=== PATIENT | female | born 1955 | race Caucasian/White ===

== ENCOUNTER 2019-12-22 15:36 | Emergency (ER) | payer MEDICARE ==
--- NOTE | 2019-12-22 15:39 | ERPHSYRPT ---
- History of Present Illness Time Seen by Provider: 12/22/19 15:38 Source: patient Exam Limitations: clinical condition Physician History: This is a 64-year-old white female who has history of remote CVA, hypertension, hypothyroidism and rheumatoid arthritis and presents with weakness that began yesterday afternoon precipitating a fall. Patient states since that time she has had some weakness in her left upper extremity and numbness in both her lower extremities. She states that the weakness is worse today. Patient states she did not hit her head. Occurred: yesterday Reason for Fall: fainted (Patient felt weak) Injuries/Pain Location: no injury Loss of Consciousness: no loss of consciousness Severity of Pain-Max: none Severity of Pain-Current: none Associated Symptoms (Fall): nausea, slurred speech, other (Weakness) Allergies/Adverse Reactions: UNOBTAINABLE Allergy (Unverified 12/22/19 15:53) Home Medications: Levothyroxine Sodium [Euthyrox] 50 mcg PO DAILY 12/22/19 [History] Travel Risk - International Travel Have you traveled outside of the country in past 3 weeks: No - Coronavirus Screening Are you exhibiting any of the following symptoms?: No Close contact with a COVID-19 positive Pt in past 14-21 Days: No - Review of Systems Constitutional: Weakness Eyes: No Symptoms Ears, Nose, & Throat: No Symptoms Respiratory: No Symptoms Cardiac: No Symptoms Abdominal/Gastrointestinal: No Symptoms Genitourinary Symptoms: No Symptoms Musculoskeletal: Other (Weakness left upper extremity and bilateral lower extremities) Skin: No Symptoms Neurological: Speech Changes (Mild speech slurring), Other (Generalized weakness) Psychological: No Symptoms Endocrine: No Symptoms Hematologic/Lymphatic: No Symptoms Immunological/Allergic: No Symptoms All Other Systems: Reviewed and Negative - Past Medical History Pertinent Past Medical History: Yes Neurological History: Other Cardiac History: Hypertension Respiratory History: No Pertinent History Endocrine Medical History: Hypothyroidism Musculoskeletal History: Rheumatoid Arthritis GI Medical History: No Pertinent History History: No Pertinent History Psycho-Social History: No Pertinent History Female Reproductive Disorders: No Pertinent History Other Medical History: CVA, low thyroid, progressive systemic sclerosis - Past Surgical History Neuro Surgical History: No Pertinent History Cardiac: No Pertinent History Respiratory: No Pertinent History Gastrointestinal: No Pertinent History Genitourinary: No Pertinent History Musculoskeletal: No Pertinent History Female Surgical History: No Pertinent History - Nursing Vital Signs Nursing Vital Signs: Initial Vital Signs Temperature 98.1 F 12/22/19 15:44 Pulse Rate 88 12/22/19 15:44 Respiratory Rate 18 12/22/19 15:44 Blood Pressure 154/60 12/22/19 15:44 O2 Sat by Pulse Oximetry 92 L 12/22/19 15:44 Pain Scale Pain Intensity 2 - [place] Coma Score Best Eye Response ([place]): (4) open spontaneously Best Verbal Response ([place]): (5) oriented Best Motor Response ([place]): (6) obeys commands [place] Total: 15 - Physical Exam General Appearance: mild distress, alert, lethargy Head Injury: no evidence of injury Eye Exam: PERRL/EOMI, eyes nml inspection ENT Exam: airway nml, nml ext.inspection Neck Exam: supple, trachea midline, full range of motion, normal alignment, normal inspection, No focal neuro deficit Respiratory/Chest Exam: normal breath sounds, No chest tenderness, No respiratory distress, No decreased breath sounds Cardiovascular Exam: normal heart sounds, regular rate/rhythm, normal peripheral pulses Gastrointestinal Exam: soft, normal bowel sounds Rectal Exam: not done Back Exam: normal inspection, normal range of motion, No CVA tenderness, No vertebral tenderness Extremity Exam: normal inspection, normal range of motion, other (Patient bilateral lower extremities feel weak and numb per the patient report. However she is able to move them normally.) Neurologic Exam: alert, oriented x 3, cooperative, canvas cutter hand II-XII nml as tested, sensation nml, slurred speech (Arrival blood glucose was between 25 and 30.) Skin Exam: normal color, warm, dry SpO2 Interpretation: normal O2 Delivery: Room Air - Course Nursing assessment & vital signs reviewed: Yes EKG Interpreted by Me: RATE (80), Sinus Rhythm, NORMAL AXIS, NORMAL INTERVALS, NORMAL QRS, Other (No comparison EKG available. No obvious acute ischemic changes on the current EKG) Ordered Tests: Active Orders 24 hr Category Date Time Status Accucheck STAT Care 12/22/19 16:06 Active Seismograph Shooter STAT Care 12/22/19 16:08 Active EKG-ER Only STAT Care 12/22/19 16:06 Active IV Insertion STAT Care 12/22/19 16:06 Active NPO (ED) STAT Care 12/22/19 16:07 Active Pulse Oximetry (ED) STAT Care 12/22/19 16:06 Active House Regular Diet Diet 12/22/19 Dinner Active HEAD WITHOUT CONTRAST [CT] Stat Exams 12/22/19 16:08 Taken BLOOD CULTURE Stat Lab 12/22/19 16:51 Received CBC W DIFF Stat Lab 12/22/19 16:15 Completed CMP Stat Lab 12/22/19 16:15 Completed Glucose,Critical Care Stat Lab 12/22/19 16:03 Completed Lactic Acid Stat Lab 12/22/19 16:03 Completed PROTIME WITH INR Stat Lab 12/22/19 16:15 Completed T4 (Thyroxine) Stat Lab 12/22/19 17:05 Completed TROPONIN Q3H Lab 12/22/19 16:15 Completed TROPONIN Q3H Lab 12/22/19 19:15 Ordered TROPONIN Q3H Lab 12/22/19 22:15 Ordered TSH [TSH, 3RD Generation] Stat Lab 12/22/19 17:05 Completed UA W/RFX UR CULTURE Stat Lab 12/22/19 19:12 Completed VBG [VENOUS BLOOD GAS] Stat Lab 12/22/19 16:04 Completed Medication Summary Generic Name Dose Route Start Last Admin Trade Name Freq PRN Reason Stop Dose Admin Sodium Chloride 1,000 mls @ 100 mls/hr 12/22/19 16:15 12/22/19 16:14 Sodium Chloride 0.9% 1000 Ml IV 01/21/20 16:14 100 mls/hr .Q10H SELINA Administration Discontinued Medications Generic Name Dose Route Start Last Admin Trade Name Freq PRN Reason Stop Dose Admin Dextrose Confirm 12/22/19 15:56 D50w 50 Ml Abboject Administered 12/22/19 15:57 Dose 50 ml IV .STK-MED ONE Dextrose 50 ml 12/22/19 16:09 12/22/19 16:20 D50w 50 Ml Abboject IV 12/22/19 16:10 50 ml STAT ONE Administration Ondansetron HCl 4 mg 12/22/19 16:11 12/22/19 16:14 Zofran 4 Mg/2 Ml Vial IV 12/22/19 16:12 4 mg STAT ONE Administration Ondansetron HCl Confirm 12/22/19 16:13 Zofran 4 Mg/2 Ml Vial Administered 12/22/19 16:14 Dose 4 mg .ROUTE .STK-MED ONE Lab/Rad Data: Laboratory Result Diagrams 12/22/19 16:15 12/22/19 16:15 Laboratory Results 12/22/19 12/22/19 12/22/19 Range/Units 19:12 17:05 16:15 WBC (4.0-10.5) K/mm3 RBC (4.1-5.4) M/mm3 Hgb (12.0-16.0) gm/dl Hct (35-47) % MCV (78-100) fl MCH (26-32) pg MCHC (32-36) g/dl RDW (11.5-14.0) % Plt Count (150-450) K/mm3 MPV (7.5-11.0) fl Gran % (36.0-66.0) % Eos # (Auto) (0-0.5) Absolute Lymphs (auto) (1.0-4.6) Absolute Monos (auto) (0.0-1.3) Lymphocytes % (24.0-44.0) % Monocytes % (0.0-12.0) % Eosinophils % (0.00-5.0) % Basophils % (0.0-0.4) % Absolute Granulocytes (1.4-6.9) Basophils # (0-0.4) PT (9.95-12.35) SECONDS INR (0.8-3.0) pO2/FiO2 Ratio % VBG pH (7.32-7.42) VBG pCO2 at Pat Temp (42-55) mm/Hg VBG pO2 at Pat Temp (25-40) mm/Hg VBG HCO3 (22-28) meq/L VBG O2 Sat (Zach) (95-100) VBG Base Excess (-2.0-2.0) VBG Hemoglobin VBG Carboxyhemoglobin (0.0-6.9) % T HGB POC Potassium (3.5-5.1) Glucose (70-110) Sodium (137-145) mmol/L Potassium (3.5-5.1) mmol/L Chloride (98-107) mmol/L Carbon Dioxide (22-30) mmol/L Anion Gap (5-15) MEQ/L BUN (7-17) mg/dL Creatinine (0.52-1.04) mg/dL Estimated GFR ML/MIN Lactic Acid (0.4-2.0) Calcium (8.4-10.2) mg/dL Total Bilirubin (0.2-1.3) mg/dL AST (14-36) U/L ALT (0-35) U/L Alkaline Phosphatase (38-126) U/L Troponin I < 0.012 (0.000-0.034) ng/mL Serum Total Protein (6.3-8.2) g/dL Albumin (3.5-5.0) g/dL Thyroxine (T4) 11.5 H (5.53-10.96) ug/dL TSH 3rd Generation 0.205 L (0.47-4.68) mIU/L Urine Color STRAW (YELLOW) Urine Appearance CLEAR (CLEAR) Urine pH 6.0 (5-6) Ur Specific [place] 1.003 (1.005-1.025) Urine Protein NEGATIVE (Negative) Urine Ketones SMALL (NEGATIVE) Urine Blood NEGATIVE (0-5) Willem/ul Urine Nitrite NEGATIVE (NEGATIVE) Urine Bilirubin NEGATIVE (NEGATIVE) Urine Urobilinogen NEGATIVE (0-1) mg/dL Ur Leukocyte Esterase NEGATIVE (NEGATIVE) Urine WBC (Auto) NONE (0-5) /HPF Urine RBC (Auto) NONE (0-2) /HPF U Epithel Cells (Auto) RARE (FEW) /HPF Urine Bacteria (Auto) NONE (NEGATIVE) /HPF Urine Mucus (Auto) SLIGHT (NEGATIVE) /HPF Urine Culture Reflexed NO (NO) Urine Glucose 50 (NEGATIVE) mg/dL 12/22/19 12/22/19 12/22/19 Range/Units 16:15 16:15 16:15 WBC 8.7 (4.0-10.5) K/mm3 RBC 3.82 L (4.1-5.4) M/mm3 Hgb 12.6 (12.0-16.0) gm/dl Hct 36.2 (35-47) % MCV 94.8 (78-100) fl MCH 33.0 H (26-32) pg MCHC 34.8 (32-36) g/dl RDW 11.7 (11.5-14.0) % Plt Count 198 (150-450) K/mm3 MPV 10.1 (7.5-11.0) fl Gran % 81.2 H (36.0-66.0) % Eos # (Auto) 0.03 (0-0.5) Absolute Lymphs (auto) 1.08 (1.0-4.6) Absolute Monos (auto) 0.52 (0.0-1.3) Lymphocytes % 12.4 L (24.0-44.0) % Monocytes % 5.9 (0.0-12.0) % Eosinophils % 0.3 (0.00-5.0) % Basophils % 0.2 (0.0-0.4) % Absolute Granulocytes 7.09 H (1.4-6.9) Basophils # 0.02 (0-0.4) PT 13.7 H (9.95-12.35) SECONDS INR 1.21 (0.8-3.0) pO2/FiO2 Ratio % VBG pH (7.32-7.42) VBG pCO2 at Pat Temp (42-55) mm/Hg VBG pO2 at Pat Temp (25-40) mm/Hg VBG HCO3 (22-28) meq/L VBG O2 Sat (Zach) (95-100) VBG Base Excess (-2.0-2.0) VBG Hemoglobin VBG Carboxyhemoglobin (0.0-6.9) % T HGB POC Potassium (3.5-5.1) Glucose 319 H (70-110) Sodium 124 L (137-145) mmol/L Potassium 3.5 (3.5-5.1) mmol/L Chloride 89 L (98-107) mmol/L Carbon Dioxide 16 L* (22-30) mmol/L Anion Gap 22.5 H (5-15) MEQ/L BUN 8 (7-17) mg/dL Creatinine 0.52 (0.52-1.04) mg/dL Estimated GFR > 60.0 ML/MIN Lactic Acid (0.4-2.0) Calcium 8.8 (8.4-10.2) mg/dL Total Bilirubin 0.50 (0.2-1.3) mg/dL AST 68 H (14-36) U/L ALT 56 H (0-35) U/L Alkaline Phosphatase 78 (38-126) U/L Troponin I (0.000-0.034) ng/mL Serum Total Protein 6.8 (6.3-8.2) g/dL Albumin 4.1 (3.5-5.0) g/dL Thyroxine (T4) (5.53-10.96) ug/dL TSH 3rd Generation (0.47-4.68) mIU/L Urine Color (YELLOW) Urine Appearance (CLEAR) Urine pH (5-6) Ur Specific [place] (1.005-1.025) Urine Protein (Negative) Urine Ketones (NEGATIVE) Urine Blood (0-5) Willem/ul Urine Nitrite (NEGATIVE) Urine Bilirubin (NEGATIVE) Urine Urobilinogen (0-1) mg/dL Ur Leukocyte Esterase (NEGATIVE) Urine WBC (Auto) (0-5) /HPF Urine RBC (Auto) (0-2) /HPF U Epithel Cells (Auto) (FEW) /HPF Urine Bacteria (Auto) (NEGATIVE) /HPF Urine Mucus (Auto) (NEGATIVE) /HPF Urine Culture Reflexed (NO) Urine Glucose (NEGATIVE) mg/dL 12/22/19 12/22/19 12/22/19 Range/Units 16:04 16:03 16:03 WBC (4.0-10.5) K/mm3 RBC (4.1-5.4) M/mm3 Hgb (12.0-16.0) gm/dl Hct (35-47) % MCV (78-100) fl MCH (26-32) pg MCHC (32-36) g/dl RDW (11.5-14.0) % Plt Count (150-450) K/mm3 MPV (7.5-11.0) fl Gran % (36.0-66.0) % Eos # (Auto) (0-0.5) Absolute Lymphs (auto) (1.0-4.6) Absolute Monos (auto) (0.0-1.3) Lymphocytes % (24.0-44.0) % Monocytes % (0.0-12.0) % Eosinophils % (0.00-5.0) % Basophils % (0.0-0.4) % Absolute Granulocytes (1.4-6.9) Basophils # (0-0.4) PT (9.95-12.35) SECONDS INR (0.8-3.0) pO2/FiO2 Ratio 21.0 % VBG pH 7.25 L (7.32-7.42) VBG pCO2 at Pat Temp 43 (42-55) mm/Hg VBG pO2 at Pat Temp 24 L (25-40) mm/Hg VBG HCO3 18.9 L (22-28) meq/L VBG O2 Sat (Zach) 37.3 L (95-100) VBG Base Excess -8.1 L (-2.0-2.0) VBG Hemoglobin 14.5 VBG Carboxyhemoglobin 3.3 (0.0-6.9) % T HGB POC Potassium 5.0 (3.5-5.1) Glucose 31 L* (70-110) Sodium (137-145) mmol/L Potassium (3.5-5.1) mmol/L Chloride (98-107) mmol/L Carbon Dioxide (22-30) mmol/L Anion Gap (5-15) MEQ/L BUN (7-17) mg/dL Creatinine (0.52-1.04) mg/dL Estimated GFR ML/MIN Lactic Acid 7.6 H (0.4-2.0) Calcium (8.4-10.2) mg/dL Total Bilirubin (0.2-1.3) mg/dL AST (14-36) U/L ALT (0-35) U/L Alkaline Phosphatase (38-126) U/L Troponin I (0.000-0.034) ng/mL Serum Total Protein (6.3-8.2) g/dL Albumin (3.5-5.0) g/dL Thyroxine (T4) (5.53-10.96) ug/dL TSH 3rd Generation (0.47-4.68) mIU/L Urine Color (YELLOW) Urine Appearance (CLEAR) Urine pH (5-6) Ur Specific [place] (1.005-1.025) Urine Protein (Negative) Urine Ketones (NEGATIVE) Urine Blood (0-5) Willem/ul Urine Nitrite (NEGATIVE) Urine Bilirubin (NEGATIVE) Urine Urobilinogen (0-1) mg/dL Ur Leukocyte Esterase (NEGATIVE) Urine WBC (Auto) (0-5) /HPF Urine RBC (Auto) (0-2) /HPF U Epithel Cells (Auto) (FEW) /HPF Urine Bacteria (Auto) (NEGATIVE) /HPF Urine Mucus (Auto) (NEGATIVE) /HPF Urine Culture Reflexed (NO) Urine Glucose (NEGATIVE) mg/dL - Progress Progress: improved Progress Note: 12/22/19 16:15 Chest CAT scan with contrast reveals mild to moderate bilateral upper and lower lobe pneumonias. No pulmonary emboli or aortic dissection present the CAT scan of the abdomen and pelvis again shows the moderate bilateral lower lobe pneumonias. There is a normal appendix. No other acute intra-abdominal findings are noted by radiologist. 12/22/19 17:15 The nurse noted some changes in the rhythm on the monitor. A repeat EKG was performed on 12/22/2019 at 5:05 PM. The rate is 83 is not sinus rhythm. There is prolonged QT interval. I do not appreciate any acute ischemic changes. CAT scan of the head reveals new infarcts in the right basal ganglia extending superiorly towards the hernandez radiata and left thalamus. The age is indeterminate. An acute infarct cannot be excluded. There is no evidence of acute hemorrhage or mass affect. 12/22/19 19:03 I reexamined this patient. She now can move all her extremities normal for her. Her daughter confirms this. She does not have any slurring of speech. Her blood sugar is now 319. Patient states she is feeling much better and wants to go home. Patient does not want to be admitted or transferred. I explained to her the importance of being admitted or transferred to an inpatient hospital with a neurologist. Patient refuses. I told her her symptoms can worsen and she could have a major stroke and . Patient understands this and she will sign an AMA form. Counseled pt/family regarding: lab results, diagnosis, need for follow-up, rad results - Departure Departure Disposition: AMA Clinical Impression: CVA (cerebral vascular accident), Hypoglycemia, Hyperthyroidism Condition: Stable Critical Care Time: Yes Critical Care Time(excluding separately billable procedures): Critical 30-74 mins Referrals: RONAL MONTERO [Primary Care Provider] - Additional Instructions: Return to the emergency department if your symptoms worsen. Call your primary care doctor/neurologist tomorrow morning to obtain further management instructions. Take your medication as prescribed.
[2019-12-22] MEDS ORDERED: D50W 50 ml Abboject IV ONE ×2 (15:56→16:09)
[2019-12-22 16:07] LABS: VBG BASE EXCESS -8.1 (-2.0-2.0); VBG CARBOXYHEMOGLOBIN 3.3 % T HGB (0.0-6.9); VBG HCO3- 18.9 meq/L (22-28); VBG HEMOGLOBIN 14.5; VBG O2 SATURATION 37.3 (95-100); VBG pH 7.25 (7.32-7.42)
[2019-12-22] MEDS ORDERED: Zofran 4 MG/2 ML VIAL IV ONE (16:11)
[2019-12-22] MEDS ORDERED: Zofran 4 MG/2 ML VIAL ONE (16:13)
[2019-12-22] MEDS ORDERED: Sodium Chloride 0.9% 1000 ML 1,000 ML ONE (16:13)
[2019-12-22] MEDS ORDERED: Sodium Chloride 0.9% 1000 ML 1,000 ML IV SCH (16:15)
[2019-12-22 16:24] LABS: Absolute Neutrophil Ct (ANC) 7.09 (1.4-6.9); BASOPHIL % 0.2 % (0.0-0.4); Basophil (Absolute #) 0.02 (0-0.4); Eosinophil % 0.3 % (0.00-5.0); Eosinophil (Absolute #) 0.03 (0-0.5); Hematocrit 36.2 % (35-47); Hemoglobin 12.6 gm/dl (12.0-16.0); Lymphocyte (Absolute #) 1.08 (1.0-4.6); Lymphocytes % 12.4 % (24.0-44.0); Mean Cell Volume 94.8 fl (78-100); Mean Corpuscular Hgb Concent. 34.8 g/dl (32-36); Mean Platelet Volume 10.1 fl (7.5-11.0); Monocyte (Absolute #) 0.52 (0.0-1.3); Monocytes % 5.9 % (0.0-12.0); Neutrophil % 81.2 % (36.0-66.0); Platelet Count 198 K/mm3 (150-450); Red Blood Count 3.82 M/mm3 (4.1-5.4); Red Cell Distribution Width 11.7 % (11.5-14.0); White Blood Count 8.7 K/mm3 (4.0-10.5)
[2019-12-22 16:32] LABS: INR 1.21 (0.8-3.0); PROTIME 13.7 SECONDS (9.95-12.35)
[2019-12-22 16:57] LABS: ALBUMIN 4.1 g/dL (3.5-5.0); ALKALINE PHOSPHATASE 78 U/L (38-126); ANION GAP 22.5 MEQ/L (5-15); BLOOD UREA NITROGEN 8 mg/dL (7-17); CHLORIDE 89 mmol/L (98-107); Calcium 8.8 mg/dL (8.4-10.2); Creatinine 1 0.52 mg/dL (0.52-1.04); Glucose 319 mg/dL (74-106); Potassium 3.5 mmol/L (3.5-5.1); SGOT/AST 68 U/L (14-36); SGPT/ALT 56 U/L (0-35); SODIUM 124 mmol/L (137-145); Total Protein 6.8 g/dL (6.3-8.2)
[2019-12-22 17:02] VITALS: O2SAT 98
[2019-12-22 17:04] LABS: Carbon Dioxide 16 mmol/L (22-30)
[2019-12-22 17:45] LABS: T4 (Thyroxine) 11.5 ug/dL (5.53-10.96); TSH, 3RD Generation 0.205 mIU/L (0.47-4.68)
[2019-12-22 19:17] LABS: Appearance CLEAR (CLEAR); Bilirubin NEGATIVE (NEGATIVE); Blood NEGATIVE Ery/ul (0-5); Epithelial Cells RARE /HPF (FEW); Glucose 50 mg/dL (NEGATIVE); Ketones SMALL (NEGATIVE); Leukocyte Esterase NEGATIVE (NEGATIVE); Mucus SLIGHT /HPF (NEGATIVE); Nitrite NEGATIVE (NEGATIVE); Protein,Urine Dip NEGATIVE (Negative); Specific Gravity 1.003 (1.005-1.025); Urobilinogen NEGATIVE mg/dL (0-1)
[2019-12-22 19:59] VITALS: BP 131/60; PULSE 84
--- NOTE | 2019-12-22 20:07 | XRAY ---
Indication: Left-sided weakness and lethargy. Low blood sugar. Multiple contiguous axial images obtained through the head without contrast. Comparison: December 12, 2017. There remains age-appropriate global atrophy, mild periventricular degenerative micro-ischemia bilaterally, and small old right basal ganglia/caudate infarct. Left thalamus demonstrates new 8 mm ischemia versus infarct. Again no acute intracranial hemorrhage, abnormal extra-axial fluid collection, or mass effect. Fourth ventricle is midline without hydrocephalus. Bony calvarium intact. Visualized paranasal sinuses and mastoid air cells are clear. Impression: 1. New subcentimeter left thalamic ischemia versus infarct. MRI may yield further information. 2. Nonacute senile brain with again old right basal ganglia/caudate infarct. Comment: Preliminary interpretation was made by [facility]. No critical discrepancy.
== END 2019-12-22 19:55 | disposition left against medical advice (07) ==
LOC: ED 15:36
DX: I63.9 Cerebral infarction, unspecified (principal); E16.2 Hypoglycemia, unspecified; E05.90 Thyrotoxicosis, unspecified without thyrotoxic crisis or storm; I10 Essential (primary) hypertension; E03.9 Hypothyroidism, unspecified; M06.9 Rheumatoid arthritis, unspecified; W19.XXXA Unspecified fall, initial encounter; Y93.9 Activity, unspecified
CPT/HCPCS: 36000; 36415; 70450; 80053; 81001; 82805; 82947; 82962; 83605; 84436; 84443; 84484; 85025; 85610; 87040; 93005; 93041; 94760; 96374; 96375; 99284; 99291; J2405

== ENCOUNTER 2022-11-29 09:44 | Day surgery (SDC) | payer MEDICARE ==
[2022-11-29] MEDS ORDERED: NON-FORMULARY ITEM OP ONE (09:45)
[2022-11-29] MEDS ORDERED: cefUROXime sodium 0.005 GM in Sodium Chloride Flush 30 ML*** 0.5 ML IJ ONE (09:45)
[2022-11-29] MEDS ORDERED: BETADINE 5% OPHTHALMIC 30 ML OP ONE (09:45)
[2022-11-29] MEDS ORDERED: Epinephrine Preservative Free 1 MG/ML IJ ONE (09:45)
[2022-11-29] MEDS ORDERED: Ak-Dilate OPHTHALMIC*** 1.065 ML, Cyclogyl 1% OPHTH SOL 1.065 ML, GATIFLOXACIN 0.5% OPH... OP ONE ×4 (09:45)
[2022-11-29] MEDS ORDERED: Lactated Ringers 1,000 ML IV SCH (09:45)
[2022-11-29] MEDS ORDERED: TETRACAINE 0.5% STERI-UNIT SOL OP ONE ×2 (09:45)
[2022-11-29] MEDS ORDERED: Lactated Ringers 1,000 ML IV ONE (10:31)
[2022-11-29] MEDS ORDERED: Zofran 4 MG/2 ML VIAL IV PRN (11:45)
[2022-11-29] MEDS ORDERED: ACETAZOLAMIDE 250 MG TABLET PO ONE (11:45)
[2022-11-29] MEDS ORDERED: DIPRIVAN 200 MG/20 ML IV ONE ×2 (13:06→13:25)
[2022-11-29 13:34] VITALS: O2SAT 96
[2022-11-29 13:47] VITALS: BP 148/53; PULSE 72
== END 2022-11-29 13:54 | disposition home or self-care (01) ==
LOC: SDC 09:44
PROVIDERS: ATTEND Ophthalmology
DX: H25.811 Combined forms of age-related cataract, right eye (principal)
CPT/HCPCS: C1780; J0171; J2704; A9270-GY

== ENCOUNTER 2022-12-27 06:44 | Day surgery (SDC) | payer MEDICARE, SELFPAY ==
[2022-12-27] MEDS ORDERED: Epinephrine Preservative Free 1 MG/ML IJ ONE (06:45)
[2022-12-27] MEDS ORDERED: MIOSTAT IO ONE (06:45)
[2022-12-27] MEDS ORDERED: Lactated Ringers 1,000 ML IV ONE (06:59)
[2022-12-27] MEDS ORDERED: Ak-Dilate OPHTHALMIC*** 1.065 ML, Cyclogyl 1% OPHTH SOL 1.065 ML, GATIFLOXACIN 0.5% OPH... OP ONE ×4 (07:00)
[2022-12-27] MEDS ORDERED: Lactated Ringers 1,000 ML IV SCH (07:00)
[2022-12-27] MEDS ORDERED: BETADINE 5% OPHTHALMIC 30 ML OP ONE (07:00)
[2022-12-27] MEDS ORDERED: TETRACAINE 0.5% STERI-UNIT SOL OP ONE ×2 (07:00)
[2022-12-27] MEDS ORDERED: cefUROXime sodium 0.005 GM in Sodium Chloride Flush 30 ML*** 0.5 ML IJ ONE (07:00)
[2022-12-27] MEDS ORDERED: NON-FORMULARY ITEM OP ONE (07:00)
[2022-12-27] MEDS ORDERED: Zofran 4 MG/2 ML VIAL IV PRN (09:00)
[2022-12-27] MEDS ORDERED: ACETAZOLAMIDE 250 MG TABLET PO ONE (09:00)
[2022-12-27] MEDS ORDERED: DIPRIVAN 200 MG/20 ML IV ONE ×2 (09:13→09:14)
[2022-12-27 09:54] VITALS: BP 124/45; PULSE 60; O2SAT 100
== END 2022-12-27 10:06 | disposition home or self-care (01) ==
LOC: SDC 06:44
PROVIDERS: ATTEND Ophthalmology
DX: H25.812 Combined forms of age-related cataract, left eye (principal); I10 Essential (primary) hypertension
CPT/HCPCS: 93005; C1780; J0171; J2704; A9270-GY

== ENCOUNTER 2023-11-12 20:41 | Emergency (ER) | payer MEDICARE ==
[2023-11-12 21:24] VITALS: RESP 18; TEMP 99
[2023-11-12 22:25] LABS: Absolute Neutrophil Ct (ANC) 12.04 x10^3/uL (1.4-6.9); BASOPHIL % 0.1 % (0.0-0.4); Basophil (Absolute #) 0.02 x10^3/uL (0-0.4); Eosinophil (Absolute #) 0 x10^3/uL (0-0.5); Hematocrit 34.6 % (35-47); Hemoglobin 12.3 g/dL (12.0-16.0); IMMATURE GRAN # 0.06 x10^3u/L (0.00-0.03); IMMATURE GRAN % 0.4 % (0.00-0.4); Lymphocyte (Absolute #) 0.54 x10^3/uL (1.0-4.6); Lymphocytes % 3.9 % (24.0-44.0); Mean Cell Volume 90.1 fL (78-100); Mean Corpuscular Hgb Concent. 35.5 g/dL (32-36); Mean Platelet Volume 9.7 fL (7.5-11.0); Monocyte (Absolute #) 1.26 x10^3/uL (0.0-1.3); Monocytes % 9.1 % (0.0-12.0); Neutrophil % 86.5 % (36.0-66.0); Platelet Count 220 x10^3/uL (150-450); Red Blood Count 3.84 x10^6/uL (4.1-5.4); Red Cell Distribution Width 12.5 % (11.5-14.0); White Blood Count 13.9 x10^3/uL (4.0-10.5)
[2023-11-12 22:34] VITALS: BP 164/91; PULSE 89; O2SAT 97
[2023-11-12 22:37] LABS: ALBUMIN 4.6 g/dL (3.5-5.0); ANION GAP 16.6 MEQ/L (5-15); Calcium 9.5 mg/dL (8.4-10.2); Creatinine 1 0.65 mg/dL (0.52-1.04); EST GLOMERULAR FILTRATION RATE 95.3 ML/MIN; Potassium 4.2 mmol/L (3.5-5.1); Total Protein 7.7 g/dL (6.3-8.2)
--- NOTE | 2023-11-12 22:59 | ERPHSYRPT ---
- History of Present Illness Time Seen by Provider: 11/12/23 22:20 Source: patient Exam Limitations: no limitations Patient Subjective Stated Complaint: pt states fever and cough for the past 2 days Triage Nursing Assessment: pt came into the er via wheelchair; pt transfer to cot per self; axo x4; c/o fever; afebrile on arrival; skin PDW; moist hacking cough present; productive cough; no respiratory distress present; hypertensive Physician History: 68yo f presents by private vehicle for cough, chest congestion that started 4-5d ago. Pt states her grandson has a URI and she has been around him frequently. Pt reports she had fever 101F at home today, afebrile at presentation. Pt reports cough is minimally productive of clear sputum, denies significant sinus drainage, denies sore throat. Pt currently denies cp, soa, n/v/abdominal pain. Pt has not taken any medications for her sx today. Timing/Duration: day(s) (5) Cough Quality/Degree: moderate, productive cough Associated Symptoms: fever, cough, No chest pain/soreness, No dizziness, No headache, No muscle aches, No nasal congestion, No nasal drainage, No shortness of breath, No sore throat, No wheezing Allergies/Adverse Reactions: cyclobenzaprine [From Flexeril] Adverse Reaction (Verified 11/12/23 21:08) 'triple vision and dizziness" NSAIDS (Non-Steroidal Anti-Inflamma Adverse Reaction (Verified 11/12/23 21:08) Nausea and Vomiting "makes sick" nictotine patches Adverse Reaction (Unknown, Uncoded 11/12/23 21:08) Irregular Heart Beat "messes with heart" Home Medications: Levothyroxine Sodium [Euthyrox] 25 mcg PO DAILY 12/22/19 [History] lisinopriL [Lisinopril] 5 mg PO DAILY 11/21/22 [History] Atorvastatin Calcium [Lipitor] 10 mg PO DAILY 11/12/23 [History] Hx Tetanus, Diphtheria Vaccination/Date Given: No Hx Influenza Vaccination/Date Given: No Hx Pneumococcal Vaccination/Date Given: No Immunizations Up to Date: No Travel Risk - International Travel Have you traveled outside of the country in past 3 weeks: No - Emerging Infectious Disease Are you exhibiting symptoms associated with any current EIDs: Yes Symptoms: Cough: New Onset, Fever - Review of Systems Constitutional: Fever, No Chills, No Fatigue Ears, Nose, & Throat: No Symptoms Respiratory: Cough, No Dyspnea, No Stridor, No Wheezing Cardiac: No Symptoms Abdominal/Gastrointestinal: No Symptoms Musculoskeletal: No Symptoms Neurological: No Symptoms - Past Medical History Pertinent Past Medical History: Yes Neurological History: Other ENT History: Cataracts Cardiac History: Hypertension Respiratory History: No Pertinent History Endocrine Medical History: Hypothyroidism Musculoskeletal History: Rheumatoid Arthritis GI Medical History: No Pertinent History History: No Pertinent History Psycho-Social History: No Pertinent History Female Reproductive Disorders: No Pertinent History Other Medical History: CVA, low thyroid, progressive systemic sclerosis - Past Surgical History Past Surgical History: Yes Neuro Surgical History: No Pertinent History Cardiac: No Pertinent History Respiratory: No Pertinent History Gastrointestinal: No Pertinent History Genitourinary: No Pertinent History Musculoskeletal: No Pertinent History Female Surgical History: Hysterectomy Other Surgical History: hysterectomy - Social History Smoking Status: Current every day smoker How long have you smoked: years Exposure to second hand smoke: Yes Drug Use: none Patient Lives Alone: Yes - Social Determinants of Health Will the patient participate in the screening: Yes Do you worry about a steady place to live?: No Do you have any problems with any of the following?: No known problems In the past 12 months,have you had to go without utilities?: No Transportation Issues: No Has anyone in your support network made you feel unsafe?: No Have you or anyone in your house had to go without enough: No - Nursing Vital Signs Nursing Vital Signs: Initial Vital Signs Pulse Rate 90 11/12/23 21:07 Blood Pressure 154/60 11/12/23 21:07 O2 Sat by Pulse Oximetry 96 11/12/23 21:07 Pain Scale Pain Intensity 7 - Physical Exam General Appearance: no apparent distress, alert Ears, Nose, Throat Exam: normal ENT inspection Respiratory Exam: normal breath sounds, lungs clear, airway intact, No chest tenderness, No respiratory distress, No diminished breath sounds Cardiovascular Exam: regular rate/rhythm, murmur (2/6 systolic ) Neurologic Exam: alert, oriented x 3, cooperative, normal mood/affect Skin Exam: normal color, warm, dry SpO2 Interpretation: normal SpO2: 97 O2 Delivery: Room Air Ordered Tests: Active Orders 24 hr Category Date Time Status CHEST 1 VIEW (PORTABLE) Stat Exams 06/02/24 22:01 Taken CBC W DIFF Stat Lab 11/12/23 22:23 Completed CMP Stat Lab 11/12/23 22:23 Completed PROCALCITONIN Stat Lab 11/12/23 22:23 Received Lab/Rad Data: Laboratory Result Diagrams 11/12/23 22:23 11/12/23 22:23 Laboratory Results 11/12/23 11/12/23 Range/Units 22:23 22:23 WBC 13.9 H (4.0-10.5) x10^3/uL RBC 3.84 L (4.1-5.4) x10^6/uL Hgb 12.3 (12.0-16.0) g/dL Hct 34.6 L (35-47) % MCV 90.1 (78-100) fL MCH 32.0 (26-32) pg MCHC 35.5 (32-36) g/dL RDW 12.5 (11.5-14.0) % Plt Count 220 (150-450) x10^3/uL MPV 9.7 (7.5-11.0) fL Gran % 86.5 H (36.0-66.0) % Immature Gran % (Auto) 0.4 (0.00-0.4) % Nucleat RBC Rel Count 0.0 (0.00-0.1) % Eos # (Auto) 0 (0-0.5) x10^3/uL Immature Gran # (Auto) 0.06 H (0.00-0.03) x10^3u/L Absolute Lymphs (auto) 0.54 L (1.0-4.6) x10^3/uL Absolute Monos (auto) 1.26 (0.0-1.3) x10^3/uL Absolute Nucleated RBC 0.00 (0.00-0.01) x10^3u/L Lymphocytes % 3.9 L (24.0-44.0) % Monocytes % 9.1 (0.0-12.0) % Eosinophils % 0.0 (0.00-5.0) % Basophils % 0.1 (0.0-0.4) % Absolute Granulocytes 12.04 H (1.4-6.9) x10^3/uL Basophils # 0.02 (0-0.4) x10^3/uL Sodium 128 L (135-145) mmol/L Potassium 4.2 (3.5-5.1) mmol/L Chloride 95 L (98-107) mmol/L Carbon Dioxide 20 L (22-30) mmol/L Anion Gap 16.6 H (5-15) MEQ/L BUN 7 (7-17) mg/dL Creatinine 0.65 (0.52-1.04) mg/dL Estimated GFR 95.3 ML/MIN Glucose 112 H (74-106) mg/dL Calcium 9.5 (8.4-10.2) mg/dL Total Bilirubin 1.00 (0.2-1.3) mg/dL AST 24 (14-36) U/L ALT 18 (0-35) U/L Alkaline Phosphatase 60 (38-126) U/L Serum Total Protein 7.7 (6.3-8.2) g/dL Albumin 4.6 (3.5-5.0) g/dL - Progress Progress: re-examined Air Movement: good Progress Note: 11/12/23 22:57 wbc 13k Na 129 cxr suggestive of LLL pna I recommended admission for IV abx and IV fluid resuscitation pt refusing to be admitted, wants to sign out AMA pt AxO x 4, has capacity to make medical decisions based on my exam i discussed risks of leaving AMA w/ her current medical state, discussed risk of , pt voiced understanding of her current situation and the risks she is taking by leaving the hospital will send augmentin to cover for bacterial pna as outpatient 11/12/23 23:02 Blood Culture(s) Obtained: No Antibiotics given: No Counseled pt/family regarding: lab results, diagnosis, need for follow-up, rad results Medical Desision Making - Diagnostic Testing Diagnostic test were ordered, analyzed, and reviewed by me: Yes Radiological Interpretation: Interpreted by me - Risk of complications The pt has a high risk of morbidity or mortality based on: Decision regarding hospitilization or escalation of hosp level of care - Departure Departure Disposition: AMA Clinical Impression: Hyponatremia Pneumonia Qualifiers: Pneumonia type: due to unspecified organism Laterality: left Lung location: lower lobe of lung Qualified Code(s): J18.9 - Pneumonia, unspecified organism Condition: Stable Critical Care Time: No Referrals: [facility] [Primary Care Provider] - Follow up/PCP as directed Prescriptions: Amox Tr/Potass Clav. 875 mg [Augmentin 875-125 Tablet] 875 mg PO BID #14 tablet
[2023-11-13 00:55] LABS: Slide Review 1 YES
--- NOTE | 2023-11-13 08:47 | XRAY ---
Indication: Cough. Comparison: June 26, 2021 Portable chest again hyperinflated with a few incidental tiny calcified granulomas. New left mid to lower lung infiltrate/atelectasis/effusion. Remaining heart and right lung unremarkable. Bony thorax intact again with osteopenia and degenerative changes.
== END 2023-11-12 22:55 | disposition left against medical advice (07) ==
LOC: ED 20:41
DX: J18.9 Pneumonia, unspecified organism (principal); E87.1 Hypo-osmolality and hyponatremia; R05.1 Acute cough; R50.9 Fever, unspecified; I10 Essential (primary) hypertension; Z79.899 Other long term (current) drug therapy; Z72.0 Tobacco use
CPT/HCPCS: 36415; 71045; 80053; 84145; 85025; 99283

== ENCOUNTER 2024-09-19 15:12 | Emergency (ER) | payer MEDICARE ==
[2024-09-19 15:15] VITALS: TEMP 98.4; O2SAT 98
[2024-09-19 15:30] LABS: Absolute Neutrophil Ct (ANC) 2.49 x10^3/uL (1.56-6.13); BASOPHIL % 0.6 % (0.1-1.2); Basophil (Absolute #) 0.03 x10^3/uL (0.01-0.08); Eosinophil % 1.8 % (0.7-5.8); Eosinophil (Absolute #) 0.09 x10^3/uL (0.04-0.36); Hematocrit 35.1 % (34.1-44.9); Hemoglobin 12.4 g/dL (11.2-15.7); IMMATURE GRAN # 0.01 x10^3u/L (0.001-0.031); IMMATURE GRAN % 0.2 % (0.001-0.429); Lymphocyte (Absolute #) 1.39 x10^3/uL (1.18-3.74); Lymphocytes % 28.2 % (19.3-51.7); Mean Cell Volume 91.4 fL (79.4-94.8); Mean Corpuscular Hemoglobin 32.3 pg (25.6-32.2); Mean Corpuscular Hgb Concent. 35.3 g/dL (32.2-35.5); Mean Platelet Volume 9.7 fL (9.4-12.3); Monocyte (Absolute #) 0.92 x10^3/uL (0.24-0.86); Monocytes % 18.7 % (4.7-12.5); Neutrophil % 50.5 % (34.0-71.1); Platelet Count 256 x10^3/uL (182-369); Red Blood Count 3.84 x10^6/uL (3.93-5.22); Red Cell Distribution Width 12.4 % (11.7-14.4); White Blood Count 4.9 x10^3/uL (3.98-10.04)
[2024-09-19 15:44] LABS: ALBUMIN 4.7 g/dL (3.5-5.0); ANION GAP 12.5 MEQ/L (5-15); BILIRUBIN,TOTAL 0.6 mg/dL (0.2-1.3); Calcium 9.3 mg/dL (8.4-10.2); Creatinine 1 0.45 mg/dL (0.52-1.04); EST GLOMERULAR FILTRATION RATE 103.4 ML/MIN; INR 2.77 (0.8-3.0); PROTIME 28.2 SECONDS (9.4-12.5); Potassium 4.4 mmol/L (3.5-5.1); Total Protein 7.3 g/dL (6.3-8.2)
--- NOTE | 2024-09-19 16:39 | XRAY ---
Indication: Stroke like symptoms. Comparison: January 26, 2024 Portable chest unchanged again hyperinflated and clear with incidental left apical calcified granuloma. Heart not enlarged again with arteriosclerotic aorta. Bony thorax intact again with osteopenia. No new/acute findings.
--- NOTE | 2024-09-19 16:39 | XRAY ---
Indication: Numbness. Multiple contiguous axial images obtained through the head without contrast. Comparison: November 13, 2020 Again age-appropriate global atrophy and moderate periventricular degenerative micro-ischemia bilaterally. Grossly stable small old infarcts left/right basal ganglia and left thalamus. No acute intracranial hemorrhage, abnormal extra-axial fluid collection, or mass effect. Fourth ventricle is midline without hydrocephalus. Bony calvarium intact. Visualized paranasal sinuses and mastoid air cells are clear. 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
--- NOTE | 2024-09-19 16:59 | ERPHSYRPT ---
- History of Present Illness Time Seen by Provider: 09/19/24 15:13 Patient Subjective Stated Complaint: patient stated she began having some numbness in extremities last night then it went away now she is having again today. Triage Nursing Assessment: pt is alert and oriented x3, able to ambulate with walker, pupils perrla3, smile is symetrical for patient , she has had previous tia's. ED Dr is completing NIH on patient. patient reporting numbness in left arm and leg. Physician History: 69 years old female with history of hypertension, hyperlipidemia, hypothyroidi sm, stroke on Coumadin with some questionable numbness and tingling on the left side intermittently presented in the ER with complains of increasing numbness on the left upper and lower extremity since yesterday. Patient reported car improved and worse again earlier today. Patient was at Coumadin clinic and told that she thinks she is having a stroke and is brought in the ER. Patient denies any weakness in the left side, no difficulty speech, no visual changes. Denies any gait changes. Denies any chest pain palpitations or shortness of breath. No abdominal pain nausea or vomiting. Allergies/Adverse Reactions: cyclobenzaprine [From Flexeril] Adverse Reaction (Verified 11/12/23 21:08) 'triple vision and dizziness" NSAIDS (Non-Steroidal Anti-Inflamma Adverse Reaction (Verified 11/12/23 21:08) Nausea and Vomiting "makes sick" nictotine patches Adverse Reaction (Unknown, Uncoded 11/12/23 21:08) Irregular Heart Beat "messes with heart" Home Medications: Levothyroxine Sodium [Euthyrox] 25 mcg PO DAILY 12/22/19 [History] lisinopriL [Lisinopril] 5 mg PO DAILY 11/21/22 [History] Atorvastatin Calcium [Lipitor] 10 mg PO DAILY 11/12/23 [History] Empagliflozin [Jardiance] 10 mg PO DAILY 02/21/24 [History] Metoprolol Succinate 25 mg PO DAILY 02/21/24 [History] PARoxetine HCL [Paroxetine HCl] 10 mg PO DAILY 02/21/24 [History] Hx Tetanus, Diphtheria Vaccination/Date Given: No Hx Influenza Vaccination/Date Given: No Hx Pneumococcal Vaccination/Date Given: No Travel Risk - International Travel Have you traveled outside of the country in past 3 weeks: No - Emerging Infectious Disease Are you exhibiting symptoms associated with any current EIDs: No Symptoms: Cough: New Onset, Fever - Review of Systems Constitutional: No Symptoms Eyes: No Symptoms Ears, Nose, & Throat: No Symptoms Respiratory: No Symptoms Cardiac: No Symptoms Abdominal/Gastrointestinal: No Symptoms Genitourinary Symptoms: No Symptoms Musculoskeletal: Arthralgias Skin: No Symptoms Neurological: Sensory Changes Endocrine: No Symptoms Hematologic/Lymphatic: No Symptoms Immunological/Allergic: No Symptoms - Past Medical History Pertinent Past Medical History: Yes Neurological History: Other ENT History: Cataracts Cardiac History: Hypertension Respiratory History: No Pertinent History Endocrine Medical History: Hypothyroidism Musculoskeletal History: Rheumatoid Arthritis GI Medical History: No Pertinent History History: No Pertinent History Psycho-Social History: No Pertinent History Female Reproductive Disorders: No Pertinent History Other Medical History: CVA, low thyroid, progressive systemic sclerosis - Past Surgical History Past Surgical History: Yes Neuro Surgical History: No Pertinent History Cardiac: No Pertinent History Respiratory: No Pertinent History Gastrointestinal: No Pertinent History Genitourinary: No Pertinent History Musculoskeletal: No Pertinent History Female Surgical History: Hysterectomy Other Surgical History: hysterectomy - Social History Smoking Status: Current every day smoker How long have you smoked: years Exposure to second hand smoke: Yes Drug Use: none - Social Determinants of Health Will the patient participate in the screening: Yes Do you worry about a steady place to live?: No Do you have any problems with any of the following?: No known problems In the past 12 months,have you had to go without utilities?: No Transportation Issues: No Has anyone in your support network made you feel unsafe?: No Have you or anyone in your house had to go w/o enough food: No - Nursing Vital Signs Nursing Vital Signs: Initial Vital Signs Temperature 98.2 F 09/19/24 15:10 Pulse Rate 70 09/19/24 15:10 Respiratory Rate 20 09/19/24 15:10 Blood Pressure 190/70 09/19/24 15:10 Pain Scale Pain Intensity 2 - [place] Coma Scale Best Eye Response (Ryley): (4) open spontaneously Best Verbal Response ([place]): (5) oriented Best Motor Response ([place]): (6) obeys commands Ryley Total: 15 - Physical Exam General Appearance: no apparent distress, alert, anxiety Eye Exam: bilateral eye: normal inspection, PERRL, EOMI Ears, Nose, Throat Exam: normal ENT inspection Neck Exam: normal inspection, non-tender, supple, full range of motion Respiratory: normal breath sounds, lungs clear Cardiovascular: regular rate/rhythm, normal heart sounds Gastrointestinal: soft, normal bowel sounds, No tenderness Back Exam: normal inspection Extremity Exam: normal inspection, normal range of motion Mental Status: alert, oriented x 3, 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 Exam: normal hearing, normal speech, PERRL Coordination/Gait: normal finger to nose, normal cerebellar function Motor/Sensory: no motor deficit, no pronator drift, negative Babinski's sign, No no sensory deficit (Mild decrease sensations of touch in upper and lower extremities on the left) DTR: bicep (R): 2+, bicep (L): 2+, knee (R): 2+, knee (L): 2+ Skin Exam: normal color SpO2 Interpretation: normal SpO2: 98 O2 Delivery: Room Air - Course EKG Interpreted by Me: RATE (71), Sinus Rhythm, NORMAL AXIS, NORMAL INTERVALS, Non-specific ST Changes Ordered Tests: Active Orders 24 hr Category Date Time Status Automation And Control Engineer STAT Care 09/19/24 15:20 Completed EKG-ER Only STAT Care 09/19/24 15:19 Completed IV Insertion STAT Care 09/19/24 15:19 Completed NPO (ED) STAT Care 09/19/24 15:19 Completed POCT Glucose Check STAT Care 09/19/24 15:19 Completed Pulse Oximetry (ED) STAT Care 09/19/24 15:19 Completed CHEST 1 VIEW (PORTABLE) Stat Exams 09/19/24 15:19 Completed HEAD WITHOUT CONTRAST [CT] Stat Exams 09/19/24 15:13 Completed CBC W DIFF Stat Lab 09/19/24 15:20 Completed CMP Stat Lab 09/19/24 15:20 Completed Lactic Acid Stat Lab 09/19/24 15:23 Completed PROTIME WITH INR Stat Lab 09/19/24 15:20 Completed TROPONIN Q3H Lab 09/19/24 15:20 Completed Lab/Rad Data: Laboratory Result Diagrams 09/19/24 15:20 09/19/24 15:20 Laboratory Results 09/19/24 09/19/24 09/19/24 Range/Units 15:23 15:20 15:20 WBC (3.98-10.04) x10^3/uL RBC (3.93-5.22) x10^6/uL Hgb (11.2-15.7) g/dL Hct (34.1-44.9) % MCV (79.4-94.8) fL MCH (25.6-32.2) pg MCHC (32.2-35.5) g/dL RDW (11.7-14.4) % Plt Count (182-369) x10^3/uL MPV (9.4-12.3) fL Gran % (34.0-71.1) % Immature Gran % (Auto) (0.001-0.429) % Nucleat RBC Rel Count (0.00-0.2) % Eos # (Auto) (0.04-0.36) x10^3/uL Immature Gran # (Auto) (0.001-0.031) x10^3u/L Absolute Lymphs (auto) (1.18-3.74) x10^3/uL Absolute Monos (auto) (0.24-0.86) x10^3/uL Absolute Nucleated RBC (0.00-0.012) x10^3u/L Lymphocytes % (19.3-51.7) % Monocytes % (4.7-12.5) % Eosinophils % (0.7-5.8) % Basophils % (0.1-1.2) % Absolute Granulocytes (1.56-6.13) x10^3/uL Basophils # (0.01-0.08) x10^3/uL PT 28.2 H (9.4-12.5) SECONDS INR 2.77 (0.8-3.0) Sodium 131 L (135-145) mmol/L Potassium 4.4 (3.5-5.1) mmol/L Chloride 96 L (98-107) mmol/L Carbon Dioxide 27 (22-30) mmol/L Anion Gap 12.5 (5-15) MEQ/L BUN 6 L (7-17) mg/dL Creatinine 0.45 L (0.52-1.04) mg/dL Estimated GFR 103.4 ML/MIN Glucose 79 (74-106) mg/dL Lactic Acid 1.0 (0.4-2.0) Calcium 9.3 (8.4-10.2) mg/dL Total Bilirubin 0.60 (0.2-1.3) mg/dL AST 36 (14-36) U/L ALT 17 (0-35) U/L Alkaline Phosphatase 68 (38-126) U/L Troponin I (0.000-0.033) ng/mL Serum Total Protein 7.3 (6.3-8.2) g/dL Albumin 4.7 (3.5-5.0) g/dL 09/19/24 09/19/24 Range/Units 15:20 15:20 WBC 4.9 (3.98-10.04) x10^3/uL RBC 3.84 L (3.93-5.22) x10^6/uL Hgb 12.4 (11.2-15.7) g/dL Hct 35.1 (34.1-44.9) % MCV 91.4 (79.4-94.8) fL MCH 32.3 H (25.6-32.2) pg MCHC 35.3 (32.2-35.5) g/dL RDW 12.4 (11.7-14.4) % Plt Count 256 (182-369) x10^3/uL MPV 9.7 (9.4-12.3) fL Gran % 50.5 (34.0-71.1) % Immature Gran % (Auto) 0.2 (0.001-0.429) % Nucleat RBC Rel Count 0.0 (0.00-0.2) % Eos # (Auto) 0.09 (0.04-0.36) x10^3/uL Immature Gran # (Auto) 0.01 (0.001-0.031) x10^3u/L Absolute Lymphs (auto) 1.39 (1.18-3.74) x10^3/uL Absolute Monos (auto) 0.92 H (0.24-0.86) x10^3/uL Absolute Nucleated RBC 0.00 (0.00-0.012) x10^3u/L Lymphocytes % 28.2 (19.3-51.7) % Monocytes % 18.7 H (4.7-12.5) % Eosinophils % 1.8 (0.7-5.8) % Basophils % 0.6 (0.1-1.2) % Absolute Granulocytes 2.49 (1.56-6.13) x10^3/uL Basophils # 0.03 (0.01-0.08) x10^3/uL PT (9.4-12.5) SECONDS INR (0.8-3.0) Sodium (135-145) mmol/L Potassium (3.5-5.1) mmol/L Chloride (98-107) mmol/L Carbon Dioxide (22-30) mmol/L Anion Gap (5-15) MEQ/L BUN (7-17) mg/dL Creatinine (0.52-1.04) mg/dL Estimated GFR ML/MIN Glucose (74-106) mg/dL Lactic Acid (0.4-2.0) Calcium (8.4-10.2) mg/dL Total Bilirubin (0.2-1.3) mg/dL AST (14-36) U/L ALT (0-35) U/L Alkaline Phosphatase (38-126) U/L Troponin I < 0.012 (0.000-0.033) ng/mL Serum Total Protein (6.3-8.2) g/dL Albumin (3.5-5.0) g/dL - Progress Progress: unchanged Progress Note: 09/19/24 17:11 69 years old female is evaluated in the ER for numbness and tingling sensation in the left upper and lower extremities worsening since yesterday. Patient was at Coumadin clinic which she reported as if having an acute stroke. Patient during our evaluation reported she has this thing off and on for quite some time. She is stroke activated, prompt CT head is obtained along with [facility] neurology consult who has evaluated patient, recommended obtaining MRI and EMG studies for further evaluation which patient declined and wanted to go home immediately. CT head is negative for any acute finding but old infarcts. Chest x-ray is negative for any acute cardiopulmonary findings. Has normal white count, unremarkable chemistries and negative troponins. I have discussed the results of workup and recommendations of neurology which patient does not want to go for it at all. Patient wants to leave, she is not confused or altered at all and reports "I have these symptoms off and on for quite some time and I am not worried about and would never go for MRI". She even does not want to follow-up with primary care for outpatient MRI. Discussed signs symptoms of worsening needing return to ER which she seems understanding. Patient walked out of the ER in a stable condition without any assistance. Complexity of problem addressed: High Complexity of data reviewed/analyzed: Hide Risk of complication associated with current condition: High Discussed with Dr.: Other (Dr. Mart OLGUIN neurology) Counseled pt/family regarding: lab results, diagnosis, need for follow-up, rad results Medical Desision Making - Discussion of managment Care discussed with:: specialist (Dr. Mart OLGUIN neurology) Reviewed:: Test results, Need for additional workup Agreed on:: Treatment plan Will see patient: in ED - Diagnostic Testing Diagnostic test were ordered, analyzed, and reviewed by me: Yes Radiological Interpretation: Interpreted by me, Reviewed by me - Risk of complications The pt has a mod risk of morbidity or mortality based on: Need for prescription drug management The pt has a high risk of morbidity or mortality based on: Decision regarding hospitilization or escalation of hosp level of care - Departure Departure Disposition: AMA Clinical Impression: Numbness and tingling of left upper and lower extremity Condition: Stable Critical Care Time: No Referrals: [facility] [Primary Care Provider] - Follow up/PCP as directed
[2024-09-19 17:07] VITALS: BP 184/54; PULSE 78; RESP 14
== END 2024-09-19 17:09 | disposition left against medical advice (07) ==
LOC: ED 15:12
DX: R20.2 Paresthesia of skin (principal); I10 Essential (primary) hypertension; E78.5 Hyperlipidemia, unspecified; Z79.84 Long term (current) use of oral hypoglycemic drugs; Z79.01 Long term (current) use of anticoagulants; Z79.899 Other long term (current) drug therapy; Z72.0 Tobacco use
CPT/HCPCS: 36415; 70450; 71045; 80053; 83605; 84484; 85025; 85610; 93005; 93041; 94760; 99284; 99285